=== PATIENT | female | born 1945 | race Caucasian/White ===

== ENCOUNTER → 2018-07-03 | Outpatient (CLI) | payer MEDICARE ==
--- NOTE | 2018-07-03 14:43 | BD ---
EXAMINATION TYPE: Axial Bone Density DATE OF EXAM: 07/03/2018 COMPARISON: NONE CLINICAL HISTORY: 73 YR OLD FEMALE.....ICD-10 CODE: Z78.0 MENOPAUSAL STATE Height: 64 Weight: 268 FRAX RISK QUESTIONS: Glucocorticoids (More than 3mos): YES (Ex: prednisone, prednisolone, methylprednisolone, dexamethasone, and hydrocortisone). History of Fracture in Adulthood: YES Secondary Osteoporosis: YES 3. Menopause before 45: YES, AT 36 YRS OLD...TOTAL HYST 5. Chronic liver disease: FATTY LIVER RISK FACTORS HISTORY OF: HX OF FX TO RT ANKLE WITH SURGICAL REPAIR, >49 YRS OLD Diet low in dairy products/other sources of calcium: YES, NO MILK Postmenopausal woman: YES, AT 36 YRS OLD...TOTAL HYST. Lost more than 2 inches in height since high school: YES Frequent falls: USES CANE...UNSTEADY MEDICATIONS: Prednisone or other steroids: ASTHMA INHALERS, PREDNISONE ON AND OFF FOR LUNGS How Long: MANY YRS Additional Medications: BP MEDS, WELLBUTRIN, METFORMIN, REFLUX MEDS, VIT D, Additional History: OSTEOARTHRITIS, EXAM MEASUREMENTS: Bone mineral densitometry was performed using the [employer] System. Bone mineral density as measured about the Lumbar spine is: ----- L1-L4(G/cm2): 1.147 T Score Values are as follows: ----- L1: -1.3 ----- L2: 0.5 ----- L3: -0.2 ----- L4: -0.3 ----- L1-L4: -0.3 Bone mineral density FIRST BONE DENSITY AT [facility] Bone mineral density about the R hip (g/cm2): 1.020 Bone mineral density about the L hip (g/cm2): 1.063 T Score values are as follows: -----R Neck: -0.2 -----L Neck: -0.8 -----R Total: 0.1 -----L Total: 0.4 Bone mineral density FIRST AT [facility] FRAX%s: THERE IS A 18.3% CHANCE FOR A MAJOR OSTEOPOROTIC FX AND A 2.3% FOR A HIP FX....PROBABILITY OF FX IN 10 YR TIME IMPRESSION: No evidence for osteoporosis or osteopenia. NOTE: T-SCORE=SD OF THE YOUNG ADULT MEAN.
--- NOTE | 2018-07-05 10:46 | MM ---
Reason for exam: screening (asymptomatic). Last mammogram was performed 3 years ago. History: Patient history of other cancer. Benign excisional biopsy. Physical Findings: A clinical breast exam by your physician is recommended on an annual basis and results should be correlated with mammographic findings. MG 3D Screening Mammo W/Cad Bilateral CC and MLO view(s) were taken. Prior study comparison: July 03, 2015, mammogram, performed at [facility]. July 28, 2007, mammogram, performed at [facility]. There are scattered fibroglandular densities. There is a stable lobular density left breast. No significant changes when compared with prior studies. ASSESSMENT: Benign, BI-RAD 2 RECOMMENDATION: Routine screening mammogram of both breasts in 1 year.
== END | disposition home or self-care (01) ==
LOC: RADBDWWP 11:48
PROVIDERS: ATTEND Family Medicine
DX: Z12.31 Encounter for screening mammogram for malignant neoplasm of breast (principal); Z78.0 Asymptomatic menopausal state
CPT/HCPCS: 77063; 77067; 77080